=== PATIENT | female | born 1955 | race Caucasian/White ===

== ENCOUNTER → 2016-11-20 15:59 | Outpatient (CLI) | payer MEDICAID | END | disposition home or self-care (01) | LOC: D.CT 15:59 | DX: R10.9 Unspecified abdominal pain (principal); R50.9 Fever, unspecified ==

== ENCOUNTER → 2017-03-16 09:00 | Outpatient (CLI) | payer MEDICAID ==
--- NOTE | ~2017-03-16 | EMG ---
PATIENT:LIDIA PERERA DATE OF SERVICE: 03/16/17 MEDICAL RECORD: [id number] DATE OF : 59 LOCATION: [facility] ADMISSION DATE: REFERRING PHYSICIAN: HARRISON MENDOZA MD INTERPRETING PHYSICIAN: LISA FELIPE MD DATE OF SERVICE: 03/16/[address] Moore as an outpatient. DATE OF EXAMINATION: 03/16/2017 ELECTROMYOGRAPHIC DATA: Electromyographic examination is limited to both upper extremities. In the right upper extremity, right median motor stimulation elicits a compound motor action potential with a distal latency of 4.1 milliseconds, peak amplitude of 3 millivolts, and calculated conduction velocity of 49 meters per second. Right ulnar motor stimulation elicits a compound motor action potential with a distal latency of 3.3 milliseconds, peak amplitude of 8 millivolts, and calculated conduction velocity of 61 meters per second. Right ulnar motor stimulation across the elbow fails to elicit evidence of conduction block at this level. Antidromic right median sensory stimulation elicits a response with a distal latency of 4.1 milliseconds, amplitude of 14 microvolts and calculated conduction velocity of 54 meters per second. Antidromic right ulnar sensory stimulation elicits a response with a distal latency of 3.8 milliseconds, amplitude of 6 microvolts and calculated conduction velocity of 51 meters per second. The right median F wave has a latency of 31 milliseconds. In the left upper extremity, left median motor stimulation elicits a compound motor action potential with a distal latency of 3.8 milliseconds, peak amplitude of 8 millivolts, and calculated conduction velocity of 50 meters per second. Left ulnar motor stimulation elicits a compound motor action potential with a distal latency of 3.2 milliseconds, peak amplitude of 7 millivolts, and calculated conduction velocity of 56 meters per second. Left ulnar motor stimulation across the elbow fails to elicit evidence of conduction block at this level. Antidromic left median sensory stimulation elicits a response with a distal latency of 4.2 milliseconds, amplitude of 19 microvolts and calculated conduction velocity of 48 meters per second. Antidromic left ulnar sensory stimulation elicits a response with a distal latency of 4.5 milliseconds, amplitude of 9 microvolts and calculated conduction velocity of 51 meters per second. The left median F wave has a latency of 31 milliseconds. Needle electrode examination is limited to both upper extremities as well. Muscles interrogated include the abductor pollicis brevis, first dorsal interosseous, abductor digiti minimi, pronator teres, biceps brachii, triceps and deltoid. There is no abnormality of insertional activity and no abnormal spontaneous activity is seen in all muscles interrogated. Motor unit potential morphology and the pattern of motor unit potential firing and recruitment is normal in all muscles sampled. INTERPRETATION: Electromyographic examination of both upper extremities is indicative of median neuropathy, at or distal to the wrists bilaterally, mild in degree electrically bilaterally, consistent with the diagnosis of bilateral carpal tunnel syndrome. In addition, the left ulnar sensory distal latency is ELECTROMYGRAM/NERVE CONDUCTION [id number] LIDIA PERERA S also mildly prolonged consistent with a "biker's" neuropathy. There is no electrical evidence of a superimposed cervical radiculopathy or other lesion of the lower motor neuron in the upper extremities at this time. There is no evidence of active denervation. TRANSINT:[id number] Voice Confirmation ID: [id number] DOCUMENT ID: [id number] LISA FELIPE MD CC: [id number] DICTATION DATE: 03/17/1754 MEDICAL ASSEMBLY: 03/17/17 0837 DEP CLI 03/16/17 [facility] [address] [place] [address]
== END | disposition home or self-care (01) ==
LOC: D.CN 01-08 08:00
DX: R20.9 Unspecified disturbances of skin sensation (principal); G62.9 Polyneuropathy, unspecified

== ENCOUNTER → 2017-05-05 15:17 | Outpatient (CLI) | payer MEDICAID | END | disposition home or self-care (01) | LOC: D.CT 15:17 | DX: R10.32 Left lower quadrant pain (principal); Z87.19 Personal history of other diseases of the digestive system ==

== ENCOUNTER → 2017-07-13 14:08 | Outpatient (CLI) | payer MEDICAID | END | disposition home or self-care (01) | LOC: D.CT 14:08 | DX: K57.90 Diverticulosis of intestine, part unspecified, without perforation or abscess without bleeding (principal); R19.7 Diarrhea, unspecified; R10.32 Left lower quadrant pain ==

== ENCOUNTER → 2017-12-15 14:29 | Outpatient (CLI) | payer MEDICAID ==
[2017-12-15 17:29] LABS: BASOPHILS 0.2 % (0-2); EOSINOPHILS 0.8 % (0-7); HEMOGLOBIN 14.3 g/dL (12-16); IMMATURE GRANULOCYTES 0.3 % (0-5); LYMPHOCYTES 18.5 % (15-50); MCH 31.4 pg (26.0-34.0); MCV 92.3 fL (80.0-100.0); MEAN PLATELET VOLUME 9.9 fL (7.4-10.4); MONOCYTES 6.4 % (2-11); NEUTROPHILS 73.8 % (40-80); PLATELET COUNT 240 10x3/uL (130-400); RBC 4.55 10x6/uL (4.00-5.40); RDW 12.3 % (11.5-14.5); WBC 8.8 10x3/uL (4.8-10.8)
[2017-12-15 18:31] LABS: ERYTHROCYTE SEDIMENTATION RATE 14 mm/hr (0-30)
== END | disposition home or self-care (01) ==
LOC: D.CT 14:29
PROVIDERS: Internal Medicine Gastroenterology
DX: R10.9 Unspecified abdominal pain (principal); Z87.19 Personal history of other diseases of the digestive system

== ENCOUNTER 2018-08-04 09:35 | Inpatient (IN) | payer MEDICAID ==
[2018-08-02 11:23] LABS: HEMATOCRIT 41.4 % (36.0-48.0); HEMOGLOBIN 13.9 g/dL (12-16); MCH 31.4 pg (26.0-34.0); MCHC 33.6 g/dL (31.0-37.0); MCV 93.7 fL (80.0-100.0); MEAN PLATELET VOLUME 9.4 fL (7.4-10.4); RBC 4.42 10x6/uL (4.00-5.40); RDW 12.8 % (11.5-14.5); WBC 5.3 10x3/uL (4.8-10.8)
[~2018-08-04] VITALS: Ht 167.6 cm; Wt 86.2 kg
--- NOTE | ~2018-08-04 | OP ---
PATIENT NAME: LIDIA PERERA MEDICAL RECORD: [id number] :59 LOCATION:D[id number] ADMISSION DATE:08/04/18 SURGEON: ALEJO BOSWELL MD DATE OF OPERATION: 08/04/2018 PREOPERATIVE DIAGNOSIS: Recurrent diverticulitis of the sigmoid colon. POSTOPERATIVE DIAGNOSIS: Recurrent diverticulitis of the sigmoid colon with adhesions in the pelvis. PROCEDURES: 1. Hand-assisted laparoscopic surgery - sigmoid colectomy. 2. Incidental appendectomy. SURGEON: Alejo Boswell MD TOOLING MECHANIC: None. BLOOD LOSS: Less than 50 cc. ANESTHESIA: General. COMPLICATIONS: None. The risks, possible complications, and alternatives to the procedure were explained to the patient. She elects to proceed. The discussion specifically included, but was not limited to, bleeding requiring emergency reoperation, infection, anastomotic disruption, of the possible need for colostomy or ileostomy. The indication for the appendectomy is to avoid diagnostic confusion in the future should the patient have a recurrence or persistence of abdominal pain. OPERATIVE COURSE: The patient was conveyed to the operating room electively on 08/04/2018. General anesthesia was induced by the anesthesia staff. The abdomen was sterilely prepped and draped. The patient was in the lithotomy position. The perineum was also sterilely prepped and draped. The stirrups were adjustable. A small skin jacinda was accomplished in the left upper quadrant. A Veress needle was inserted through the skin jacinda into the peritoneal cavity. CO2 insufflation was begun. Once a sufficient pneumoperitoneum had been achieved, a 5-mm trocar was inserted in the epigastrium. Another 5-mm trocar was inserted through an incision at the umbilicus. Another 5-mm trocar was inserted through an incision in the suprapubic area. During insertion of the Veress needle and all trocars, there appeared to have been no injury to the bowels, any intraperitoneal structures or retroperitoneal structures. Utilizing the laparoscopic EnSeal device, I began to dissect along the left white line of Toldt. I came up to the splenic flexure and release some adhesions here as well, although I did not take the splenic flexure down completely. After mobilizing the left colon, I created a transverse incision 2 fingerbreadths cephalad to the pubic symphysis. Sharp dissection was carried OPERATIVE REPORT [id number] BURELL,LIIDA S down through the skin and subcutaneous tissue as well as Yung fascia. I incised the anterior fascia transversely. I then the rectus abdominis muscles. I entered the peritoneal cavity sharply. An Jones retractor was placed. Through the Jones retractor, I was able to divide some adhesions down the pelvis. I chose the proximal extent of my resection to be at the junction of the descending and sigmoid colons. I created a window in the mesentery here with my fingers and stapled across the colon with the contour stapler. I dissected down into the pelvis. I mobilized the sigmoid colon. I took down the mesentery of the sigmoid colon with the laparoscopic EnSeal device. I then used a contour stapler to divide the colon at its juncture with the rectum. The sigmoid colon was sent as a single specimen. I opened up the cut end of the descending colon. I placed a 29 mm anvil in the colon and brought it out through the antimesenteric border. I then closed the colon with a single-firing of the RUTH-75 stapler. I then went below and dilated the rectum up with the EEA sizers. I inserted the EEA device and brought the arrow out in the anterior rectum. Care was paid not to injure the tubes, bladder or uterus. I then connected the anvil to the EEA device. I ensured that the bowel was not twisted on its mesentery. We then tightened down the EEA device and then fired. We then loosened up the EEA device and removed it under direct vision. I then instilled saline in the pelvis. I went down below with a proctoscope and inflated the rectum and colon pneumatically with the proctoscope and there was no bubbling, therefore an airtight anastomosis. I then re-scrubbed and re-gowned and I removed the packs and ensured that there was no bowel injury. I identified the appendix. A window was created in the mesoappendix. I stapled across the tip of the cecum with a TA 30 stapler and then divided the appendix distal to this. I took down the mesoappendix with the laparoscopic EnSeal device. I then draped the omentum over the small bowel and the omentum reached all the way down into the pelvis. The rectus muscles were approximated in the midline with multiple interrupted horizontal mattress of #1 Vicryls. The abdominal wall fascia was closed with a looped #1 PDS. The subdermis and the lower incision were closed with interrupted 3-0 Vicryls. The skin was approximated with a running intracuticular 3-0 Vicryl. The trocar site in the epigastrium was closed with a single intracuticular 3-0 Vicryl. The skin at the umbilicus was closed with a 4-0 Vicryl Rapide suture. Sterile dressings were applied. The patient was then extubated and conveyed to post-anesthesia care unit where she was in stable condition. TRANSINT:[id number] Voice Confirmation ID: [id number] DOCUMENT ID: [id number] OPERATIVE REPORT [id number] LIDIA PERERA ROBERT MD at 1645 CC: [id number] DICTATION DATE: 08/04/181901 QA AUTOMATION DEVELOPER: 08/04/18 2241 ADM IN [place] [id number] [place] [address]
--- NOTE | ~2018-08-04 | MORECARE ---
CASE MANAGEMENT DISCHARGE SUMMARY PATIENT: LIDIA PERERA UNIT: [id number] ADM DATE: 08/04/18 AGE: 63 : 59 SEX: F ROOM/BED: D.2238 AUTHOR: KRYSTLE BOCANEGRA PHYSICIAN: REFERRING PHYSICIAN: ALEJO BOSWELL MD DATE OF SERVICE: 08/09/18 Discharge Plan Patient Name: LIDIA PERERA Facility: [facility]:[place] : 1955 Planned Disposition: Home Anticipated Discharge Date: Discharge Date: 08/08/2018 Expected LOS: Initial Reviewer: [email or web address] Initial Review Date: 08/06/2018 Generated: 08/09/18 3:48 pm Comments DCP- Discharge Planning Updated by [email or web address]: Diana Marie on 08/06/18 3:[address] Patient Name: LIDIA PERERA Admission Status: Elective Accout number: [id number] Admission Date: 08-04-2018 : 1955 Admission Diagnosis:DVTRCLI OF LG INT W/O PERFORATION OR ABSCESS W/O BLEEDI Attending: ALEJO BOSWELL Current LOS: 2 Anticipated DC Date: Planned Disposition: Home Primary Insurance: [place] PRIVATE OPT[place] [facility] Discharge Planning Comments: CM met with patient to discuss discharge planning, she is alone in the room. She states she lives in a one story home with her . She is independent with all ADL's. and IADL's. States her will take her home on discharge. States her mother is on Hospice at her home, but is in [facility] until patient is doing well enough to help her when she returns home. Declines need for DME or home health services. Commercial Production Editor: Diana Marie DCPIA - Discharge Planning Initial Assessment Updated by [email or web address]: Diana Marie on 08/06/18 4:01 pm * Is the patient Alert and Oriented? Yes * How many steps to enter\exit or inside your home? 0/0 * PCP Marylou Bryson * [facility] * Preadmission Environment Home with Family * ADLs Independent * Equipment Walker * List name and contact numbers for known caregivers / representatives who currently or will assist patient after discharge: Jefry Carballo [facility] - [phone] * Verbal permission to speak to the caregivers and representatives has been obtained from the patient. Yes * Community resources currently utilized None * Additional services required to return to the preadmission environment? No * Can the patient safely return to the preadmission environment? Yes * Has this patient been hospitalized within the prior 30 days at any hospital? No Last DP export: 08/06/18 3:15 Patient Name: LIDIA PERERA Page [id number] at 1448 All edits/amendments must be made on the electronic document DICTATION DATE: 08/09/181447 EMERY GRINDER: JOSHUA 08/09/18 1448 RPT#: [id number] [place] DATE:08/08/18 STATUS: DIS IN [facility] [address] [place] [address] END OF REPORT
--- NOTE | ~2018-08-04 | MORECARE ---
CASE MANAGEMENT DISCHARGE SUMMARY PATIENT: LIDIA PERERA UNIT: [id number] ADM DATE: 08/04/18 AGE: 63 : 59 SEX: F ROOM/BED: D.2238 AUTHOR: KRYSTLE BOCANEGRA PHYSICIAN: REFERRING PHYSICIAN: ALEJO BOSWELL MD DATE OF SERVICE: 08/06/18 Discharge Plan Patient Name: LIDIA PERERA Facility: [facility]:[place] : 1955 Planned Disposition: Home Anticipated Discharge Date: Discharge Date: Expected LOS: Initial Reviewer: [email or web address] Initial Review Date: 08/06/2018 Generated: 08/06/18 5:15 pm Comments DCP- Discharge Planning Updated by [email or web address]: Diana Marie on 08/06/18 3:[address] Patient Name: LIDIA PERERA Admission Status: Elective Accout number: [id number] Admission Date: 08-04-2018 : 1955 Admission Diagnosis:DVTRCLI OF LG INT W/O PERFORATION OR ABSCESS W/O BLEEDI Attending: ALEJO BOSWELL Current LOS: 2 Anticipated DC Date: Planned Disposition: Home Primary Insurance: [place] [employer] Discharge Planning Comments: CM met with patient to discuss discharge planning, she is alone in the room. She states she lives in a one story home with her . She is independent with all ADL's. and IADL's. States her will take her home on discharge. States her mother is on Hospice at her home, but is in [facility] until patient is doing well enough to help her when she returns home. Declines need for DME or home health services. Shared Services Manager: Diana Marie DCPIA - Discharge Planning Initial Assessment Updated by [email or web address]: Diana Marie on 08/06/18 4:01 pm * Is the patient Alert and Oriented? Yes * How many steps to enter\exit or inside your home? 0/0 * PCP Marylou Bryson * Pharmacy [facility] * Preadmission Environment Home with Family * ADLs Independent * Equipment Walker * List name and contact numbers for known caregivers / representatives who currently or will assist patient after discharge: Jefry Carballo - [facility] - [phone] * Verbal permission to speak to the caregivers and representatives has been obtained from the patient. Yes * Community resources currently utilized None * Additional services required to return to the preadmission environment? No * Can the patient safely return to the preadmission environment? Yes * Has this patient been hospitalized within the prior 30 days at any hospital? No Last DP export: 08/06/18 3:01 Patient Name: LIDIA PERERA Page 76675 at 1615 All edits/amendments must be made on the electronic document DICTATION DATE: 08/06/181613 FRONT END SPECIALIST: JOSHUA 08/06/181613 RPT#: [id number] [place] DATE: STATUS: ADM IN [facility] [address] [place] [address] END OF REPORT
--- NOTE | ~2018-08-04 | MORECARE ---
CASE MANAGEMENT DISCHARGE SUMMARY PATIENT: LIDIA PERERA UNIT: [id number] ADM DATE: 08/04/18 AGE: 63 : 59 SEX: F ROOM/BED: D.[facility]8 AUTHOR: KRYSTLE BOCANEGRA PHYSICIAN: REFERRING PHYSICIAN: ALEJO BOSWELL MD DATE OF SERVICE: 08/06/18 Discharge Plan Patient Name: LIDIA PERERA Facility: [facility]:[place] : 1955 Planned Disposition: Home Anticipated Discharge Date: Discharge Date: Expected LOS: Initial Reviewer: [email or web address] Initial Review Date: 08/06/2018 Generated: 08/06/18 5:00 pm Patient Name: LIDIA PERERA Page 26843 at 1601 All edits/amendments must be made on the electronic document DICTATION DATE: 08/06/181599 IOS PROGRAMMER: JOSHUA 08/06/18 1600 RPT#: [id number] DC DATE: STATUS: ADM IN [facility] [address] [place] [address] END OF REPORT
[~2018-08-04 09:35] MED LIST: LIBRIUM5 MG PO; OMEPRAZOLE20 M1 PO
[2018-08-04 10:45] VITALS: BP 135/65; BMI 30.7
[2018-08-05 03:47] VITALS: BMI 30.7
[2018-08-05 04:00] VITALS: BP 94/41
[2018-08-05 04:37] LABS: BASOPHILS 0 % (0-2); EOSINOPHILS 0 % (0-7); HEMATOCRIT 38.6 % (36.0-48.0); IMMATURE GRANULOCYTES 0.2 % (0-5); LYMPHOCYTES 2.9 % (15-50); MCHC 33.7 g/dL (31.0-37.0); MCV 92.1 fL (80.0-100.0); MEAN PLATELET VOLUME 10.5 fL (7.4-10.4); MONOCYTES 3.5 % (2-11); NEUTROPHILS 93.4 % (40-80); PLATELET COUNT 279 10x3/uL (130-400); RBC 4.19 10x6/uL (4.00-5.40); RDW 12.8 % (11.5-14.5)
[2018-08-05 05:11] LABS: ALKALINE PHOSPHATASE 69 U/L (46-116); ALT (SGPT) 29 U/L (10-68); BILIRUBIN - TOTAL 0.43 mg/dL (0.2-1.3); CALC OSMOLALITY 276 mosm/kg (275-300); CALCIUM 8.3 mg/dL (8.5-10.1); CARBON DIOXIDE 23.8 mmol/L (21.0-32.0); CHLORIDE - SERUM 105 mmol/L (98-107); CREATININE - SERUM 0.7 mg/dL (0.6-1.3); GLUCOSE 124 mg/dL (74-106); PHOSPHOROUS 3.8 mg/dL (2.5-4.9); POTASSIUM - SERUM 3.8 mmol/L (3.5-5.1); PROTEIN - SERUM 6.4 g/dL (6.4-8.2); SODIUM 139 mmol/L (136-145); TROPONIN-I < 0.017 ng/mL (0.000-0.060); UREA NITROGEN 6 mg/dL (7-18); eGFR NON AFRICAN AMERICAN 90 mL/min (90-120)
[2018-08-05 09:00] VITALS: BP 101/41
[2018-08-05 12:00] VITALS: BP 111/44
[2018-08-05 14:11] VITALS: Ht 167.6 cm; Wt 86.2 kg
[2018-08-05 16:00] VITALS: BP 103/45
[2018-08-05 20:00] VITALS: BP 103/46
[2018-08-06 04:00] VITALS: BP 106/49
[2018-08-06 08:51] VITALS: BP 110/52
[2018-08-06 15:27] VITALS: BP 108/64
[2018-08-06 20:28] VITALS: BP 133/61
[2018-08-06 23:54] VITALS: BP 128/63
[2018-08-07 04:32] VITALS: BP 138/68
[2018-08-07 09:00] VITALS: BP 137/57
[2018-08-07 12:30] VITALS: BP 137/65
[2018-08-07 16:17] VITALS: BP 124/54
[2018-08-07 20:27] VITALS: BP 122/54
[2018-08-08 04:16] VITALS: BP 113/62
[2018-08-08] MEDS ORDERED: NORCO 10-325 TA1 TAB PO (09:09)
[2018-08-08 09:31] VITALS: BP 140/74
[2018-08-08 12:00] VITALS: BP 119/68
== END 2018-08-08 14:47 | disposition home or self-care (01) | DRG 331 ==
LOC: D.SDCHOLD 09:35 → D.MS 09:35 → D.SDCHOLD 11:30 → D.MS 18:53
PROVIDERS: Anesthesiology; Surgery
PROC: 0DTN0ZZ Resection of Sigmoid Colon, Open Approach (ICD-10-PCS; principal; 2018-08-04 11:30)
DX: K57.32 Diverticulitis of large intestine without perforation or abscess without bleeding (principal); K21.9 Gastro-esophageal reflux disease without esophagitis

== ENCOUNTER 2019-01-26 08:00 | Outpatient (CLI) | payer MEDICAID ==
[2018-08-05 14:11] VITALS: BMI 30.6
[~2019-01-26 08:00] MED LIST changes: +NORCO 10-325 TA1 TAB PO
== END 2019-01-26 23:59 | disposition home or self-care (01) ==
LOC: D.MAMMO 08:00
PROVIDERS: ATTEND Family Medicine
DX: Z12.31 Encounter for screening mammogram for malignant neoplasm of breast (principal)